=== PATIENT | male | born 1990 | race African-American/Black ===

== ENCOUNTER 2024-01-26 17:50 | Emergency (ER) | payer SELFPAY ==
--- NOTE | 2024-01-26 18:30 | EDPHYS ---
Physician Documentation [facility] Name: Williams Herzog Age: 33 yrs Sex: Male : 1990 Arrival Date: 01/26/2024 Time: 17:50 Bed 20 Private MD: ED Physician Agusto Sofia HPI: 01/25 18:15 This 33 yrs old Male presents to ER via Ambulatory with complaints of Foreign Body In cp Ear - right. 18:15 The patient presents with a foreign body sensation, tenderness. cp 18:15 The complaints affect the right ear. cp 18:15 Patient reports about 1-2 weeks ago noticed drainage from right ear that started as cp purulent and then became bloody, used OTC ear drops and "garlic oil" that cleared up drainage. cleaned ear with q-tip and believes piece of cotton is now stuck in ear. no current drainage but has foreign body sensation and tenderness. Historical: - Allergies: 18:05 No Known Allergies; ko1 - Home Meds: 18:05 None [Active]; ko1 - PMHx: 18:05 None; ko1 - PSHx: 18:05 None; ko1 - Immunization history:: Adult Immunizations unknown. - Infectious Disease History:: Denies. - Social history:: Smoking status: Patient denies any tobacco usage or history of. ROS: 18:15 ENT: Positive for ear pain, possible foreign body, Negative for active drainage, cp 18:15 Constitutional: Negative for body aches, chills, fever, cp 18:15 Eyes: Negative for injury, pain, redness, and discharge, cp 18:15 Respiratory: Negative for cough, wheezing, 18:15 Skin: Negative for rash, 18:15 All other systems are negative, Exam: 18:20 Constitutional: The patient appears in no acute distress, alert, awake, non-toxic, well cp developed, well nourished, 18:20 Head/Face: Normocephalic, atraumatic. cp 18:20 Eyes: Periorbital structures: appear normal, Conjunctiva: normal, no exudate, no injection, Lids and lashes: appear normal, bilaterally, 18:20 ENT: External ear(s): are unremarkable, Ear canal(s): swelling, of the right canal, mild, tenderness, TM's: bulging, is not appreciated, erythema, that is mild, on the right, Nose: is normal, Mouth: Lips: moist, Oral mucosa: pink and intact, moist, Posterior pharynx: Airway: no evidence of obstruction, patent, erythema, is not appreciated, exudate, is not appreciated, 18:20 Neck: ROM/movement: is normal, is supple, without pain, no range of motions limitations, 18:20 Chest/axilla: Inspection: normal, 18:20 Cardiovascular: Rate: normal, 18:20 Respiratory: the patient does not display signs of respiratory distress, Respirations: normal, no use of accessory muscles, no retractions, labored breathing, is not present, Breath sounds: are clear throughout, no decreased breath sounds, no stridor, no wheezing, 18:20 Abdomen/GI: Inspection: abdomen appears normal, Palpation: abdomen is soft and non-tender, in all quadrants, 18:20 Skin: no rash present. Vital Signs: 18:01 BP 121 / 75; Pulse 76; Resp 15; Temp 97.4; Pulse Ox 97% ; ko1 MDM: 18:09 Patient medically screened. cp 18:28 Data reviewed: vital signs, nurses notes, and as a result, I will discharge patient. cp 18:28 Differential diagnosis: otitis media, otitis externa, ruptured TM, foreign body, acute cp otalgia, cerumen impaction. Counseling: I had a detailed discussion with the patient and/or guardian regarding the historical points, exam findings, and any diagnostic results supporting the discharge/admit diagnosis, to return to the emergency department if symptoms worsen or persist or if there are any questions or concerns that arise at home. Administered Medications: No medications were administered Disposition: 18:55 Co-signature as Attending Physician, Agusto Sofia MD I reviewed the patient's care rn provided by the Advanced Practice Provider and agree with the diagnosis and treatment plan. Disposition Summary: 01/26/24 18:29 Discharge Ordered Notes: Location: Home cp Problem: new cp Symptoms: are unchanged cp Condition: Stable cp Diagnosis - Otitis media, unspecified, right ear cp Followup: cp - With: Joleen Nelson MD - When: 2 - 3 days - Reason: Worsening of condition Discharge Instructions: - Discharge Summary Sheet cp - Otitis Media, Adult cp Forms: - Medication Reconciliation Form cp - Antibiotic Education cp - Prescription Opioid Use cp - Patient Portal Instructions cp - Leadership Thank You Letter cp Prescriptions: - Amoxicillin 875 mg Oral Tablet - take 1 tablet ORAL route every 12 hours for 10 days; 20 tablet; Refills: 0, cp Product Selection Permitted - Cortisporin-TC 3.3-3-10-0.5 mg/mL Otic drops, suspension - instill 4 drops OTIC route every 6 hours; 1 unit; Refills: 0, Product Selection cp Permitted Signatures: Agusto Sofia MD MD rn Williams Patel PA PA cp Oliver, Kathy, RN RN ko1
--- NOTE | 2024-01-26 18:30 | ER ---
Nurse's Notes [facility] Name: Williams Herzog Age: 33 yrs Sex: Male : 1990 Arrival Date: 01/26/2024 Time: 17:50 Bed 20 Private MD: Diagnosis: Otitis media, unspecified, right ear Presentation: 01/25 18:01 Chief complaint: Patient states: I think I have a cotton swab stuck in my right ear, Im ko1 not sure if that is what it is. Coronavirus screen: At this time, the client does not indicate any symptoms associated with coronavirus-19. Ebola Screen: No symptoms or risks identified at this time. Initial Sepsis Screen: Does the patient meet any 2 criteria? No. Patient's initial sepsis screen is negative. Does the patient have a suspected source of infection? No. Patient's initial sepsis screen is negative. Risk Assessment: Do you want to hurt yourself or someone else? Patient reports no desire to harm self or others. Onset of symptoms was January 26, 2024. 18:01 Method Of Arrival: Ambulatory ko1 18:01 Acuity: LAURA 4 ko1 Triage Assessment: 18:05 General: Appears in no apparent distress. Behavior is calm, cooperative, appropriate ko1 for age. Pain: Denies pain. Historical: - Allergies: 18:05 No Known Allergies; ko1 - Home Meds: 18:05 None [Active]; ko1 - PMHx: 18:05 None; ko1 - PSHx: 18:05 None; ko1 - Immunization history:: Adult Immunizations unknown. - Infectious Disease History:: Denies. - Social history:: Smoking status: Patient denies any tobacco usage or history of. Screenin:38 [facility] ED Fall Risk Assessment (Adult) History of falling in the last 3 months, jb4 including since admission No falls in past 3 months (0 pts) Confusion or Disorientation No (0 pts) Intoxicated or Sedated No (0 pts) Impaired Gait No (0 pts) Mobility Assist Device Used No (0 pt) Altered Elimination No (0 pt) Score/Fall Risk Level 0 - 2 = Low Risk Oriented to surroundings, Maintained a safe environment. Abuse screen: Denies threats or abuse. Nutritional screening: No deficits noted. Tuberculosis screening: No symptoms or risk factors identified. Assessment: 18:38 General: Appears in no apparent distress. comfortable. Pain: Denies pain. Neuro: Level jb4 of Consciousness is awake, alert, obeys commands, Oriented to person, place, time, situation. Cardiovascular: Patient's skin is warm and dry. Respiratory: Airway is patent Respiratory effort is even, unlabored, Respiratory pattern is regular, symmetrical. GI: No signs and/or symptoms were reported involving the gastrointestinal system. : No signs and/or symptoms were reported regarding the genitourinary system. EENT: Tympanic membrane clear on left ear and right ear Ear canal clear on left ear and right ear. Derm: Skin is intact, Skin is pink, warm \T\ dry. Musculoskeletal: Circulation, motion, and sensation intact. Range of motion: intact in all extremities. Vital Signs: 18:01 BP 121 / 75; Pulse 76; Resp 15; Temp 97.4; Pulse Ox 97% ; ko1 ED Course: 17:59 Patient arrived in ED. im 18:04 Triage completed. ko1 18:05 Williams Patel PA is PHCP. cp 18:05 Agusto Sofia MD is Attending Physician. cp 18:05 Arm band placed on right wrist. Patient placed in an exam room, on a stretcher, Patient ko1 notified of wait time. 18:28 Joleen Nelson MD is Referral Physician. cp 18:38 Patient has correct armband on for positive identification. Bed in low position. Call jb4 light in reach. Side rails up X 1. Provided Education on: discharge instructions.. 18:38 No provider procedures requiring assistance completed. Patient did not have IV access jb4 during this emergency room visit. Administered Medications: No medications were administered Medication: 18:38 VIS not applicable for this client. jb4 Outcome: 18:29 Discharge ordered by . cp 18:38 Discharged to home ambulatory, jb4 18:38 Condition: stable 18:38 Discharge instructions given to patient, Instructed on discharge instructions, follow up and referral plans. medication usage, Demonstrated understanding of instructions, follow-up care, medications, Prescriptions given X 2, 18:41 Patient left the ED. jb4 Signatures: Williams Patel PA PA cp Bryson, James, RN RN jb4 Karen Caro RN RN ko1 Inez Zuniga
[2024-01-26 18:56] VITALS: BP 121/75; TEMP 97.4; O2SAT 97
== END 2024-01-26 18:41 | disposition home or self-care (01) ==
LOC: ER 17:50
DX: H66.91 Otitis media, unspecified, right ear (principal)